=== PATIENT | female | born 1990 | race Caucasian/White ===

== ENCOUNTER 2024-07-25 14:05 | Outpatient (OUT) | payer OTHER, SELFPAY ==
--- NOTE | 2024-07-25 14:16 | MM_ITS ---
Patient Name: ROSALBA HUTCHINSON MR#: [id number] : 1990 Exam Date: 07/25/2024 Ordering Doctor: DR Clint Sanchez . RADIOLOGY REPORT PROCEDURE: MM TOMOSYNTHESIS DIAGNOSTIC BI, 07/25/2024, 14:25 US BREAST LT LIMITED, 07/25/2024, 15:25 COMPARISON: US BREAST LEFT LIMITED, 04/04/2021. [facility] MAMM DIAGNOSTIC 3D SUNDAY CAD, 04/04/2021. MG MAMM SUNDAY DIAG W CAD, 09/15/2016. MG MAMM SUNDAY DIAG W CAD DIG, 03/06/2016. INDICATIONS: Bilateral Breast Pain, Right Breast Lump Calculator Name NCI Breast Cancer Risk Assessment Tool 5 Year Breast Cancer Risk Not Applicable. Lifetime Breast Cancer Risk Not Applicable. Personal Breast Cancer No Personal Ovarian Cancer No Treatments None Family Cancers Uncle-maternal with lymphoma cancer at age 24. LOCATION: [facility] BREAST COMPOSITION: The breasts are extremely dense, which lowers the sensitivity of mammography. FINDINGS: DIAGNOSTIC CATEGORY 2--BENIGN FINDING: RIGHT BREAST: No significant suspicious finding. No significant change has occurred. LEFT BREAST: No significant suspicious finding. No significant change has occurred. Ultrasound evaluation of the lower-outer quadrant demonstrate stable appearance of a small benign appearing lymph node. No suspicious findings. RECOMMENDATIONS: CLINICAL EVALUATION. PLEASE NOTE: A NORMAL MAMMOGRAM DOES NOT EXCLUDE THE POSSIBILITY OF BREAST CANCER. A CLINICALLY SUSPICIOUS PALPABLE LUMP SHOULD BE BIOPSIED. Dictated by: Barry Pineda M.D. on 07/25/2024 at 15:43 Approved by: Barry Pineda M.D. on 07/25/2024 at 15:49
== END 2024-07-25 14:06 | disposition home or self-care (01) ==
LOC: MAMMO 14:10
PROVIDERS: PCP Family Medicine; Visit Provider Obstetrics & Gynecology
DX: N64.4 Mastodynia (principal); N63.10 Unspecified lump in the right breast, unspecified quadrant; N64.89 Other specified disorders of breast; Z80.7 Family history of other malignant neoplasms of lymphoid, hematopoietic and related tissues; N63.23 Unspecified lump in the left breast, lower outer quadrant
CPT/HCPCS: 76642; 77066; G0279

== ENCOUNTER 2024-07-27 20:44 | Outpatient (REF) | payer OTHER, SELFPAY ==
--- OUTSIDE RECORDS SUMMARY | 2024-07-27 20:56 | XMS_ITS | CCD ---
Author Organization [facility] Care Team Providers Care Junior Technical Writer Name Role Phone REQUEST, DR NONE LISTED Primary Care Unavaila ble CAMILLE, DR REGALADO Admitting Unavailable CAMILLE, DR REGALADO Attending Unavailable CAMILLE, DR REGALADO Consulting Unavailable ZIEBER, DR BARRY Raza Consulting Unavailable REQUEST, DR MORILLO LISTED Primary Care Unavaila ble CAMILLE, DR REGALADO Admitting Unavailable CAMILLE, DR REGALADO Attending Unavailable CAMILLE, DR REGALADO Consulting Unavailable CAMILLE, DR REGALADO Admitting Unavailable CAMILLE, DR REGALADO Attending Unavailable CAMILLE, DR REGALADO Primary Care Unavailable CAMILLE, DR REGALADO Admitting Unavailable CAMILLE, DR REGALADO Primary Care Unavailable CAMILLE, DR REGALADO Attending Unavailable CAMILLE, DR REGALADO Consulting Unavailable DEISYKOABDIAZIZ OWENS Consulting Unavailable REQUEST, DR MORILLO LISTED Primary Care Unavaila ble CAMILLE, DR REGALADO Admitting Unavailable CAMILLE, DR REGALADO Attending Unavailable CAMILLE, DR REGALADO Admitting Unavailable WEST, DR WALTER Nieto Consulting Unavailable REQUEST, DR MORILLO LISTED Primary Care Unavaila ble CAMILLE, DR REGALADO Attending Unavailable CAMILLE, DR REGALADO Consulting Unavailable HEMMER, DR ARIANA Sharpe Consulting Unavailable HEMMER, DR ARIANA Sharpe Admitting Unavailable REQUEST, DR MORILOL LISTED Primary Care Unavaila ble HEMMER, DR ARIANA Sharpe Attending Unavailable Bonner, Natasha Unavailable ASHLEY LANE Attending Unavailable Allergies Allergy Classification Reported Allergen(s) Allergy Type Date of Onset Reaction(s) Facility (1 source) patient allergy list reviewed by nurse or physicia Propensity to adverse reactions 7 Comment:Done [facility] Other (1 source) Allergies Reconciled Propensity to adverse reactions Unknown [facility] Other Medications Current Medications Medication Drug Class(es) Dates Sig (Normalized) Sig (Original) citalopram 40 mg oral tablet (1 source) Serotonin Reuptake Inhibitor take 1 tablet by mouth every twenty-four hours CeleXA 40 MG 1 tablet once a day Active escitalopram 10 mg oral tablet (1 source) Serotonin Reuptake Inhibitor take 1 tablet by mouth every twenty-four hours Lexapro 10 MG 1 tablet Orally Once a day for 30 days Active Levonorgestrel (1 source) Progestin, Progestin-containing Intrauterine Device Start: 03-06-2019 Mirena (52 MG) 20MCG/24HR Mirena (52 MG)( 20MCG/24HR Intrauterine constant infusion ) Active -Hx Entry Intrauterine constant infusion for 0 [facility] 76379-256-91 LOT# [id number] EXP: 04/2021 *Pick strength-form from [id number] outdoors for eRX* Feb, Active phentermine hydrochloride 37.5 mg oral tablet (1 source) Sympathomimetic Amine Anorectic Start: 09-23-2023 take 1 tablet by mouth once daily before breakfast Adipex-P 37.5 MG 1 tablet before breakfast Orally Once a day for 30 days Sep, Active Problems Active Problems Problem Classification Problem Date Documented Da te Episodic/Chronic Abdominal pain (6 sources) Pelvic and perineal pain; Translations: [Pelvic and perineal pain] Onset: 03-05-2021 Episodic Anxiety disorders (3 sources) Anxiety state; Translations: [Anxiety state, unspecified] Onset: 06-09-2016 Chronic Asthma (1 source) Uncomplicated asthma; Translations: [Unspecified asthma, uncomplicated] Chronic Attention-deficit, conduct, and disruptive behavior disorders (1 source) Attention deficit hyperactivity disorder, predominantly inattentive type; Translations: [Attention deficit disorder of childhood without mention of hyperactivity] Onset: 02-14-2019 Chronic Contraceptive and procreative management (1 source) Intrauterine contraceptive device in situ; Translations: [Presence of (intrauterine) contraceptive device] Episodic Disorders usually diagnosed in infancy, childhood, or adolescence (1 source) Behavioral and emotional disorder with onset in childhood; Translations: [Other specified behavioral and emotional disorders with onset usually occurring in childhood and adolescence] Chronic Menstrual disorders (3 sources) Intermenstrual bleeding - irregular; Translations: [Excessive and frequent menstruation with irregular cycle] Resolved: 09-07-2018 Chronic Mood disorders (1 source) Depression; Translations: [Depression, unspecified] Chronic Nonmalignant breast conditions (6 sources) Unspecified lump in the left breast, lower outer quadrant; Translations: [Galactorrhea not associated with childbirth] Onset: 04-04-2021 Episodic Other and unspecified benign neoplasm (1 source) Benign neoplasm of pituitary gland; Translations: [Benign neoplasm of pituitary gland] Episodic Other endocrine disorders (1 source) Hyperprolactinemia; Translations: [Hyperprolactinemia] Chronic Other female genital disorders (1 source) Abnormal uterine bleeding; Translations: [Abnormal uterine and vaginal bleeding, unspecified] Chronic Other gastrointestinal disorders (1 source) Constipation; Translations: [Other constipation] Episodic Other nervous system disorders (1 source) Parageusia; Translations: [PARAGEUSIA] Onset: 06-01-2021 Episodic Other nutritional; endocrine; and metabolic disorders (2 sources) Overweight; Translations: [Overweight] Onset: 07-24-2016 Episodic Other nutritional; endocrine; and metabolic disorders (1 source) Overweight Episodic Other nutritional; endocrine; and metabolic disorders (1 source) Body mass index (BMI) 27.0-27.9, adult Episodic Other screening for suspected conditions (not mental disorders or infectious disease) (1 source) Urine test negative; Translations: [Encounter for test, result negative] Episodic Unclassified (3 sources) CONTACT W/AND (SUSP) EXPOS COVID-19; Translations: [CONTACT W/AND (SUSP) EXPOS COVID-19] Onset: 05-24-2021 Urinary tract infections (2 sources) Urinary tract infectious disease; Translations: [Urinary tract infection, site not specified] Episodic Viral infection (1 source) COVID-19; Translations: [COVID-19] Onset: 06-01-2021 Past or Other Problems Problem Classification Problem Date Documented Date Episodic/Chronic Acute bronchitis (1 source) Acute bronchitis; Translations: [Acute bronchitis] Onset: 11-25-2017 Episodic Headache; including migraine (1 source) Headache; Translations: [Headache, unspecified] Onset: 08-14-2014 Episodic Other aftercare (1 source) History and physical examination, follow-up; Translations: [Encounter for follow-up examination after completed treatment for conditions other than malignant neoplasm] Resolved: 09-07-2018 Episodic Other nutritional; endocrine; and metabolic disorders (4 sources) Body mass index 25-29 - overweight; Translations: [Body mass index 29.0-29.9, adult] Onset: 07-24-2016 Episodic Residual codes; unclassified (1 source) Insomnia; Translations: [Insomnia, unspecified] Onset: 10-26-2018 Episodic Residual codes; unclassified (1 source) Postprocedural state finding; Translations: [Other specified postprocedural states] Resolved: 09-07-2018 Episodic Unclassified (1 source) CONTACT W/AND (SUSP) EXPOS COVID-19; Translations: [CONTACT W/AND (SUSP) EXPOS COVID-19] Onset: 05-27-2021 Results Test Name Value Interpretation Reference Range Facility Complete Blood Count with Au to Diffon 10-08-2021 Basophils (Bld) [#/Vol] 0.06 10*3/uL Normal 0.00-0.20 [facility] Art History Instructor Comment on above: Performed By: #### C BCAD, LIPD, VITD, CMP, FE #### [facility] [address], [place] [id number] Basophils/100 WBC (Bld) 1.0 % Normal [facility] Art History Instructor Comment on above: Performed By: #### C BCAD, LIPD, VITD, CMP, FE #### [facility] [address], [place] [id number] Eosinophils (Bld) [#/Vol] 0.35 10*3/uL Normal 0.02-0.50 [facility] Specialist Comment on above: Performed By: #### C BCAD, LIPD, VITD, CMP, FE #### [facility] [address], [place] [id number] Eosinophils/100 WBC (Bld) 5.9 % Normal [facility] Art History Instructor Comment on above: Performed By: #### C BCAD, LIPD, VITD, CMP, FE #### [facility] [address], [place] [id number] Erythrocyte distribution width (RBC) [Ratio] 11.6 % Normal 11.0-15.0 [facility] Specialist Comment on above: Performed By: #### C BCAD, LIPD, VITD, CMP, FE #### [facility] [address], [place] [id number] Hematocrit (Bld) [Volume fraction] 41.5 % Normal 35.0-47.0 [facility] Specialist Comment on above: Performed By: #### C BCAD, LIPD, VITD, CMP, FE #### [facility] [address], [place] [id number] Hemoglobin (Bld) [Mass/Vol] 14.2 g/dL Normal 11.6-15.5 [facility] Specialist Comment on above: Performed By: #### C BCAD, LIPD, VITD, CMP, FE #### [facility] [address], [place] [id number] Lymphocytes (Bld) [#/Vol] 2.0 10*3/uL Normal 0.9-3.9 [facility] Specialist Comment on above: Performed By: #### C BCAD, LIPD, VITD, CMP, FE #### [facility] [address], [place] [id number] Lymphocytes/100 WBC (Bld) 34.3 % Normal [facility] Specialist Comment on above: Performed By: #### C BCAD, LIPD, VITD, CMP, FE #### [facility] [address], [place] [id number] MCH (RBC) [Entitic mass] 32.4 pg Normal 27.0-33.0 [facility] Specialist Comment on above: Performed By: #### C BCAD, LIPD, VITD, CMP, FE #### [facility] [address], [place] [id number] MCHC (RBC) [Mass/Vol] 34.2 g/dL Normal 32.0-36.0 [facility] Specialist Comment on above: Performed By: #### C BCAD, LIPD, VITD, CMP, FE #### [facility] [address], [place] [id number] MCV (RBC) [Entitic vol] 95 fL Normal 80-100 [facility] Specialist Comment on above: Performed By: #### C BCAD, LIPD, VITD, CMP, FE #### [facility] [address], [place] [id number] Monocytes (Bld) [#/Vol] 0.4 10*3/uL Normal 0.2-0.9 [facility] Specialist Comment on above: Performed By: #### C BCAD, LIPD, VITD, CMP, FE #### [facility] [address], [place] [id number] Monocytes/100 WBC (Bld) 7.1 % Normal [facility] Specialist Comment on above: Performed By: #### C BCAD, LIPD, VITD, CMP, FE #### [facility] [address], [place] [id number] Neutrophils (Bld) [#/Vol] 3.0 10*3/uL Normal 1.5-7.8 [facility] Specialist Comment on above: Performed By: #### C BCAD, LIPD, VITD, CMP, FE #### [facility] [address], [place] [id number] Neutrophils/100 WBC (Bld) 51.4 % Normal [facility] Specialist Comment on above: Performed By: #### C BCAD, LIPD, VITD, CMP, FE #### [facility] [address], [place] [id number] Platelet mean volume (Bld) [Entitic vol] 10.20 fL Normal 7.50-12.50 [facility] Specialist Comment on above: Performed By: #### C BCAD, LIPD, VITD, CMP, FE #### [facility] [address], [place] [id number] Platelets (Bld) [#/Vol] 272 10*3/uL Normal 140-400 [facility] Specialist Comment on above: Performed By: #### C BCAD, LIPD, VITD, CMP, FE #### [facility] [address], [place] [id number] RBC (Bld) [#/Vol] 4.38 10*6/uL Normal 3.90-5.20 [facility] Specialist Comment on above: Performed By: #### C BCAD, LIPD, VITD, CMP, FE #### [facility] [address], [place] [id number] RDW-SD 40.5 fL Normal 37.0-50.0 [facility] Specialist Comment on above: Performed By: #### C BCAD, LIPD, VITD, CMP, FE #### [facility] [address], [place] [id number] WBC (Bld) [#/Vol] 5.9 10*3/uL Normal 3.8-11.0 [facility] [employer] Instructor Comment on above: Performed By: #### C BCAD, LIPD, VITD, CMP, FE #### [facility] [address], [place] [id number] Comprehensive Metabolic Pane helder 10-08-2021 Albumin [Mass/Vol] 5.0 g/dL Normal 3.6-5.1 [facility] [place] [facility] [employer] In[facility] Comment on above: Performed By: #### C BCAD, LIPD, VITD, CMP, FE #### [facility] [address], [place] [id number] Albumin/Globulin [Mass ratio] 2.4 {ratio} Normal 1.0-2.5 [facility] Art History Instructor Comment on above: Performed By: #### C BCAD, LIPD, VITD, CMP, FE #### [facility] [address] [facility] [place] [id number] ALP [Catalytic activity/Vol] 61 U/L Normal 35-119 [facility] Art History Instructor Comment on above: Performed By: #### C BCAD, LIPD, VITD, CMP, FE #### [facility] [address], [place] [id number] ALT [Catalytic activity/Vol] 9 U/L Normal 6-33 [facility] Specialist Comment on above: Result Comment: 07/16 Female reference range changed. Performed By: #### C BCAD, LIPD, VITD, CMP, FE #### [facility] [address] [facility] [place] [id number] Anion gap [Moles/Vol] 16 mmol/L Normal 12-20 [facility] Art History Instructor Comment on above: Result Comment: Effe ctive 08/21/2019 reference range changed. Performed By: #### C BCAD, LIPD, VITD, CMP, FE #### [facility] [address] [facility] [place] [id number] AST [Catalytic activity/Vol] 21 U/L Normal 9-34 [facility] Specialist Comment on above: Performed By: #### C BCAD, LIPD, VITD, CMP, FE #### [facility] [address], [place] [id number] BUN/CREA 12 Ratio Normal 6-22 [facility] Specialist Comment on above: Performed By: #### C BCAD, LIPD, VITD, CMP, FE #### [facility] [address], [place] [id number] Calcium [Mass/Vol] 10.2 mg/dL Normal 8.6-10.2 [facility] Comment on above: Performed By: #### C BCAD, LIPD, VITD, CMP, FE #### [facility] [address], [place] [id number] Chloride [Moles/Vol] 104 mmol/L Normal 98-[address] [facility] Comment on above: Performed By: #### C BCAD, LIPD, VITD, CMP, FE #### [facility] [address], [place] [id number] CO2 [Moles/Vol] 26 mmol/L Normal 20-[address] [facility] Comment on above: Performed By: #### C BCAD, LIPD, VITD, CMP, FE #### [facility] [address], [place] [id number] Creatinine [Mass/Vol] 0.6 mg/dL Normal 0.6-1.[address] [facility] Comment on above: Performed By: #### C BCAD, LIPD, VITD, CMP, FE #### [facility] [address], [place] [id number] eGFRAA 146 mL/min/1.73m2 Normal >60 [facility] Comment on above: Performed By: #### C BCAD, LIPD, VITD, CMP, FE #### [facility] [address], [place] [id number] eGFRNAA 121 mL/min/1.73m2 Normal >60 [facility] Comment on above: Performed By: #### C BCAD, LIPD, VITD, CMP, FE #### [facility] [address], [place] [id number] Globulin (S) [Mass/Vol] 2.1 g/dL Normal 1.9-3.7 [facility] Art History Instructor Comment on above: Performed By: #### C BCAD, LIPD, VITD, CMP, FE #### [facility] [address], [place] [id number] Glucose [Mass/Vol] 88 mg/dL Normal 65-99 [facility] [place] Art History Instructor Comment on above: Result Comment: For FASTING Glucose --- ADA reference ranges: Normal 65-99 mg/dl Prediabetes 100-125 Diabetes >/= 126 Performed By: #### C BCAD, LIPD, VITD, CMP, FE #### [facility] [address], [place] [id number] Potassium [Moles/Vol] 4.5 mmol/L Normal 3.5-5.5 [facility] Art History Instructor Comment on above: Performed By: #### C BCAD, LIPD, VITD, CMP, FE #### [facility] [address], [place] [id number] Protein [Mass/Vol] 7.1 g/dL Normal 6.1-8.1 [facility] Art History Instructor Comment on above: Performed By: #### C BCAD, LIPD, VITD, CMP, FE #### [facility] [address], [place] [id number] Sodium [Moles/Vol] 142 mmol/L Normal 135-146 [facility] Art History Instructor Comment on above: Performed By: #### C BCAD, LIPD, VITD, CMP, FE #### [facility] [address], [place] [id number] TBIL <0.3 Normal [facility] Art History Instructor Comment on above: Performed By: #### C BCAD, LIPD, VITD, CMP, FE #### [facility] [address], [place] [id number] Urea nitrogen [Mass/Vol] 7 mg/dL Normal 7-25 [facility] Art History Instructor Comment on above: Performed By: #### C BCAD, LIPD, VITD, CMP, FE #### [facility] [address], [place] [id number] Ironon 10-08-2021 FE 62 ug/dL Normal 40-190 [facility] Art History Instructor Comment on above: Result Comment: Refe chico range change 07/02/2017. Prior reference range F 37-145 ug/dL, M 59-158 ug/dL. Performed By: #### C BCAD, LIPD, VITD, CMP, FE #### [facility] [address], [place] [id number] Lipid Panelon 10-08-2021 Cholesterol [Mass/Vol] 175 mg/dL Normal 125-200 [facility] Art History Instructor Comment on above: Result Comment: Low risk < 200mg/dL Borderline risk 201-239 mg/dl High risk > or equal to 240 Performed By: #### C BCAD, LIPD, VITD, CMP, FE #### [facility] [address], [place] [id number] Cholesterol in HDL [Mass/Vol] 59 mg/dL Normal >40 [facility] Art History Instructor Comment on above: Result Comment: High Cardiovascular Risk HDL <40 mg/dL Low Cardiovascular Risk HDL > or equal to 60 mg/dl Performed By: #### C BCAD, LIPD, VITD, CMP, FE #### [facility] [address], [place] [id number] Cholesterol in LDL [Mass/Vol] 107 mg/dL Normal [facility] Art History Instructor Comment on above: Result Comment: LDL ATP III CLASSIFICATION LDL less than 100 mg/dl Optimal LDL 100-129 mg/dl Near or above optimal LDL 130-159 Borderline high LDL 160-189 High LDL greater than 189 mg/dl Very High Performed By: #### C BCAD, LIPD, VITD, CMP, FE #### [facility] [address], [place] [id number] Cholesterol in VLDL [Mass/Vol] 9 mg/dL Normal [facility] Art History Instructor Comment on above: Performed By: #### C BCAD, LIPD, VITD, CMP, FE #### [facility] [address], [place] [id number] Cholesterol.total/ Cholesterol in HDL [Mass ratio] 3 {ratio} Normal [facility] Art History Instructor Comment on above: Performed By: #### C BCAD, LIPD, VITD, CMP, FE #### [facility] [address], [place] [id number] Triglyceride [Mass/Vol] 46 mg/dL Normal 30-150 [facility] Art History Instructor Comment on above: Result Comment: TRIG ATPIII CLASSIFICATIONS TRIG less than 150 mg/dl Normal TRIG 150-199 mg/dl Borderline High TRIG 200-500 mg/dl High TRIG greather than 500 mg/dl Very High Performed By: #### C BCAD, LIPD, VITD, CMP, FE #### [facility] [address], [place] [id number] Q - PROLACTINon 10-08-2021 PROLACTIN 14.3 ng/mL Normal [facility] Art History Instructor Comment on above: Order Comment: [facility] performed at: [facility], [address] [place] [address], [address] [place] [address], [id number], Meat Blender: Walter Johnson MD [facility] Date/Time: [facility] Results Received Date/Time: [facility] Reported Date/Time: Result Comment: Refe rence Range Females Non- 3.0-30.0 10.0-209.0 Postmenopausal 2.0-20.0 Performed By: #### 7 [id number] #### [facility] [address] [place] [address] Vitamin B12/Folateon 022 Cobalamin (Vitamin B12) [Mass/Vol] 315 pg/mL Normal 211-946 [facility] Art History Instructor Comment on above: Performed By: #### B 12/Fol #### [facility] [address], [place] [id number] FOL 7.5 ng/mL Normal >4.7 [facility] Art History Instructor Comment on above: Result Comment: Refe rence range change 07/02/2017. Prior reference range F 4.8-37.3 ng/mL, M 4.5-32.2 ng/mL. Performed By: #### B 12/Fol #### [facility] [address], [place] [id number] Vitamin D 25-OHon 10-08-2021 VIT D 25 OH 29 ng/ml Low >29 [place] [facility] Instructor Comment on above: Result Comment: Cheryl min D Status Deficiency <20 ng/mL Insufficiency 20-29 ng/mL Optimal 30-100 ng/mL Possible Toxicity >=150 ng/mL Performed By: #### C BCAD, LIPD, VITD, CMP, FE #### [facility] [address] [facility] [place] [id number] Covid-19 PCR (CVDTBH)on 05-16 SARS-CoV-2 (COVID-19) RNA ELODIA+probe Ql (Unsp spec) Detected Critically abnormal NOT DETECTED [facility] Comment on above: Result Comment: This test is not yet approved or cleared by the [place] FDA. When there are no FDA-approved or cleared tests available, and other criteria are met, FDA can make tests available under an emergency access mechanism called an Emergency Use Authorization (EUA). The EUA for this test is supported by the Executive Vp of Health and Human Service's (HHS's) declaration that circumstances exist to justify the emergency use of in vitro diagnostics for the detection and/or diagnosis of the virus that causes COVID-19. This EUA will remain in effect (meaning this test can be used) for the duration of the COVID-19 declaration justifying emergency of IVDs, unless it is terminated or revoked by FDA (after which the test may no longer be used). Performed By: #### C VDTBH #### [facility] [address] [place] [address] [address] Major Williamson Covid-19 PCR (CVDTBH)on SARS-CoV-2 (COVID-19) RNA ELODIA+probe Ql (Unsp spec) Not detected Normal NOT DETECTED [facility] Comment on above: Result Comment: This test is not yet approved or cleared by the [place] FDA. When there are no FDA-approved or cleared tests available, and other criteria are met, FDA can make tests available under an emergency access mechanism called an Emergency Use Authorization (EUA). The EUA for this test is supported by the [place] of Health and Human Service's (HHS's) declaration that circumstances exist to justify the emergency use of in vitro diagnostics for the detection and/or diagnosis of the virus that causes COVID-19. This EUA will remain in effect (meaning this test can be used) for the duration of the COVID-19 declaration justifying emergency of IVDs, unless it is terminated or revoked by FDA (after which the test may no longer be used). When diagnostic testing is negative, the possibility of a false negative should be considered in the context of a patient's recent exposures and the presence of clinical signs and symptoms consistent with SARS-CoV-2. Performed By: #### C VDTB #### [facility] [address] [place], [place] [address] Dr. Major Williamson MG MAMM DIAGNOSTIC 3D SUNDAY CA Don 04-04-2021 MG MAMM DIAGNOSTIC 3D SUNDAY CAD Patient: ROSALBA HUTCHINSON Exam Date: 04/04/2021 : 1990 Gender:F Ordering : DR SABINE OBRIEN . Admission #: [id number] Family : Order #: [id number] CLICK HERE TO VIEW EXAM RADIOLOGY REPORT PROCEDURE: MAMMOGRAM DIAGNOSTIC 3D BILATERAL CAD, 04/04/2021, 13:58 ULTRASOUND BREAST LEFT LIMITED, 04/04/2021, 14:29 COMPARISON: MG MAMM SUNDAY DIAG W CAD, 09/15/2016. INDICATIONS: Lump in lower outer quadrant of left breast Calculator Name NCI Breast Cancer Risk Assessment Tool 5 Year Breast Cancer Risk Not Applicable. Lifetime Breast Cancer Risk Not Applicable. Personal Breast Cancer No Personal Ovarian Cancer No Treatments None Family Cancers Uncle-maternal with lymphoma cancer at age 24. LOCATION: [facility] BREAST COMPOSITION: Extremely dense, which lowers the sensitivity of mammography. FINDINGS: DIAGNOSTIC CATEGORY 3--PROBABLY BENIGN FINDING. THE FOLLOWING FINDING(S) HAS A HIGH PROBABILITY OF A BENIGN ETIOLOGY: RIGHT BREAST: No significant suspicious finding. Stable biopsy marker clip within the lower-outer quadrant. No significant change has occurred. LEFT BREAST: A skin surface marker is present over the upper outer quadrant, approximately 3:00 a.m., mid breast. No appreciable abnormality within the dense underlying tissue. Ultrasound evaluation demonstrates what is suspected to be a 1.2 cm lymph node at the 4 o'clock position deep to the palpable area. As a precautionary measure follow-up ultrasound evaluation in 6 months is recommended to document stability. RECOMMENDATIONS: SHORT TERM FOLLOW-UP ULTRASOUND LEFT BREAST IN 6 MONTHS. PLEASE NOTE: A NORMAL MAMMOGRAM DOES NOT EXCLUDE THE POSSIBILITY OF BREAST CANCER. A CLINICALLY SUSPICIOUS PALPABLE LUMP SHOULD BE BIOPSIED. Dictated by: Barry Pineda M.D. on 04/04/2021 at 14:44 Approved by: Barry Pineda M.D. on 04/04/2021 at 14:50 Normal [facility] US BREAST LEFT LIMITEDon US BREAST LEFT LIMITED Patient: ROSALBA HUTCHINSON Exam Date: 04/04/2021 : 1990 Gender:F Ordering : DR SABINE OBRIEN . Admission #: [id number] Family : Order #: [id number] CLICK HERE TO VIEW EXAM RADIOLOGY REPORT PROCEDURE: MAMMOGRAM DIAGNOSTIC 3D BILATERAL CAD, 04/04/2021, 13:58 ULTRASOUND BREAST LEFT LIMITED, 04/04/2021, 14:29 COMPARISON: MG MAMM SUNDAY DIAG W CAD, 09/15/2016. INDICATIONS: Lump in lower outer quadrant of left breast Calculator Name NCI Breast Cancer Risk Assessment Tool 5 Year Breast Cancer Risk Not Applicable. Lifetime Breast Cancer Risk Not Applicable. Personal Breast Cancer No Personal Ovarian Cancer No Treatments None Family Cancers Uncle-maternal with lymphoma cancer at age 24. LOCATION: [facility] BREAST COMPOSITION: Extremely dense, which lowers the sensitivity of mammography. FINDINGS: DIAGNOSTIC CATEGORY 3--PROBABLY BENIGN FINDING. THE FOLLOWING FINDING(S) HAS A HIGH PROBABILITY OF A BENIGN ETIOLOGY: RIGHT BREAST: No significant suspicious finding. Stable biopsy marker clip within the lower-outer quadrant. No significant change has occurred. LEFT BREAST: A skin surface marker is present over the upper outer quadrant, approximately 3:00 a.m., mid breast. No appreciable abnormality within the dense underlying tissue. Ultrasound evaluation demonstrates what is suspected to be a 1.2 cm lymph node at the 4 o'clock position deep to the palpable area. As a precautionary measure follow-up ultrasound evaluation in 6 months is recommended to document stability. RECOMMENDATIONS: SHORT TERM FOLLOW-UP ULTRASOUND LEFT BREAST IN 6 MONTHS. PLEASE NOTE: A NORMAL MAMMOGRAM DOES NOT EXCLUDE THE POSSIBILITY OF BREAST CANCER. A CLINICALLY SUSPICIOUS PALPABLE LUMP SHOULD BE BIOPSIED. Dictated by: Barry Pineda M.D. on 04/04/2021 at 14:44 Approved by: Barry Pineda M.D. on 04/04/2021 at 14:50 Normal [facility] US PELVISon 03-05-2021 US PELVIS EXAMINATION: US PELV IS HISTORY: Pelvic and perineal pain COMPARISON: 12/27/2019 FINDINGS: Transabdominal images The uterus is normal in size, contour and myometrial echotexture measuring 8.9 x 5.7 x 4.2 cm. Anteflexed. No focal myometrial mass. The endometrium measures 7 mm, normal. Linear hyperechogenicity within the endometrial cavity with acoustic shadowing consistent with a normally placed IUD, endometrium posterior to the IUD is not observed. The right ovary is normal in size, contour and echotexture measuring 4.1 x 2.1 x 1.7 cm. Normal resistive index of 0.5. Left ovary measures 4.3 x 3.1 x 2.4 cm. Area of anechoic echogenicity measuring 2.9 x 2.1 x 4.9 cm, a simple cyst is favored IMPRESSION: 2.9 cm left ovarian simple cyst Electronically authenticated by: WALTER PATRICK Date: 2021-03-05 13:10 Normal [facility] PROLACTINon 08-26-2018 Protein mass conc 36.1 ng/ml Normal 2.1-47.6 [facility] Comment on above: Result Comment: ARLENE ENOPAUSAL FEMALE 2.1 - 47.6POSTMENOPAUSAL FEMALE 0.0 - 41.4 Performed By: #### 4 550 ####[facility] Unless Otherwise [id number] [address] [address]Plamk: [phone]/ VTCJ #4724/CLIA # [id number] Basic Metabolic Profileon Anion gap 3 molar conc 10.0 mmol/L Normal 10.0-15.0 [facility] Comment on above: Performed By: #### 1 015 ####[facility] Unless Otherwise [id number] [address] [address]Kkghw: [phone]/ QEEE #7824/CLIA # [id number] BUN/Cre Ratio 11.7 Ratio Normal 7.0-27.0 [facility] Comment on above: Performed By: #### 1 015 ####[facility] Unless Otherwise [id number] [address] [address]Wulbx: [phone]/ IKUO #4724/CLIA # [id number] Calcium mass conc 9.6 mg/dL Normal 8.4-10.2 [facility] Comment on above: Performed By: #### 1 015 ####[facility] Unless Otherwise [id number] [address] [address]Xsirk: [phone]/ IAKS #4724/CLIA # [id number] Chloride molar conc 101.0 mmol/L Normal 98.0-107.0 [facility] Comment on above: Performed By: #### 1 015 ####[facility] Unless Otherwise [id number] [address] [address]Ecoik: [phone]/ NKNL #4724/CLIA # [id number] CO2 molar conc 29.0 mmol/L Normal 22.0-30.0 [facility] Comment on above: Performed By: #### 1 015 ####[facility] Unless Otherwise [id number] [address] [address]Nshnr: [phone]/ GVML #4724/CLIA # [id number] Creatinine mass conc 0.6 mg/dL Normal 0.5-1.0 [facility] Comment on above: Performed By: #### 1 015 ####[facility] Unless Otherwise Aypzx2488 [address] [address]Lkpvd: [phone]/ VBZY #4724/CLIA # [id number] GFR/1.73 sq M predicted among blacks MDRD vol rate/area (S/P/Bld) 155.4 ml/m1.73 Normal [facility] Comment on above: Performed By: #### 1 015 ####[facility] Unless Otherwise [id number] [address] [address]Ygmpd: [phone]/ NEIP #4724/CLIA # [id number] GFR/1.73 sq M predicted among non-blacks MDRD vol rate/area (S/P/Bld) 148.2 ml/m1.73 Normal [facility] Comment on above: Performed By: #### 1 015 ####[facility] Unless Otherwise [id number] [address] [address]Cijio: [phone]/ ZLJF #4724/CLIA # [id number] GFR/1.73 sq M predicted among non-blacks MDRD vol rate/area (S/P/Bld) 128.4 ml/m1.73 Normal [facility] Comment on above: Performed By: #### 1 015 ####[facility] Unless Otherwise [id number] [address] [address]Ghphl: [phone]/ FLWH #4724/CLIA # [id number] Glucose mass conc 81.0 mg/dL Normal 74.0-106.0 [facility] Comment on above: Performed By: #### 1 015 ####[facility] Unless Otherwise [id number] [address] [address]Rnlgy: [phone]/ XQLY #4724/CLIA # [id number] Potassium molar conc 4.3 mmol/L Normal 3.5-5.1 [facility] Comment on above: Performed By: #### 1 015 ####[facility] Unless Otherwise [id number] [address] [address]Efzyq: [phone]/ EFFD #4724/CLIA # [id number] Sodium molar conc 140.0 mmol/L Normal 137.0-145.0 [facility] Comment on above: Performed By: #### 1 015 ####[facility] Unless Otherwise [id number] [address] [address]Cbwnf: [phone]/ SNLO #4724/CLIA # [id number] Urea nitrogen mass conc 7.0 mg/dL Normal 7.0-17.0 [facility] Comment on above: Performed By: #### 1 015 ####[facility] Unless Otherwise Ujnnu3505 [address] [address]Doesg: [phone]/ KLIS #4724/CLIA # [id number] Vital Signs Date Time Vital Sign Value Performing Clinician Facility 09-23-2023 10:45-0500 Body height 160.02 cm Natasha Bonner Other [facility] Other 09-23-2023 10:45-0500 Body mass index (BMI) [Ratio] 27.6 kg/m2 Natasha Bonner Other [facility] Other 09-23-2023 10:45-0500 Body weight 70.67 kg Natasha Bonner Other [facility] Other 09-23-2023 10:45-0500 Diastolic blood pressure 83 mm[Hg] Natasha Bonner Other [facility] Other 09-23-2023 10:45-0500 Systolic blood pressure 120 mm[Hg] Natasha Bonner Other [facility] Other 08-24-2018 18:32-0500 Body weight Measured 66.1 Kg [facility] Comment on above: Performed By: #### 1015 ####[facility] Unless Otherwise [id number] [address] [address]Hcaxb: [phone]/ YREC #4724/CLIA # [id number] Encounters Encounter Date Encounter Type Care Provider Facility Start: 11-02-2023 End: 11-02-[address] Not Available Start: 09-23-2023 End: 09-23-2023 ambulatory Natasha Bonner Other [facility] Other Start: 09-23-2023 Office outpatient vi sit 15 minutes Natasha Bonner [facility] Start: 09-17-2021 Gynecological examin ation normal Natasha Bonner Other [facility] Other Start: 09-17-2021 Pre-procedure evalua tion check Natasha Bonner Other [facility] Other Start: 05-27-2021 End: 05-27-[address] ARIANA PINO Facility:[facility] Start: 05-24-2021 Encounter for preprocedural laboratory examination DR SABINE OBRIEN [facility] Start: 05-23-[address] SABINE OBRIEN Facility :[facility] Start: 05-21-2021 Encounter for other preprocedural examination DR SABINE OBRIEN [facility] Start: 05-20-2021 End: 05-21-2021 ambulatory NONE LISTED REQUEST Facility:[facility] Start: 05-20-2021 End: 05-21-2021 Encounter for preprocedural laboratory examination NONE LISTED REQUEST Facility:[facility] Start: 05-15-2021 End: 05-16-[address] SABINE OBRIEN Facility:[facility] Start: 05-15-2021 End: 05-16-2021 Encounter for other preprocedural examination DR SABINE OBRIEN Facility:[facility] Start: 04-04-2021 End: 04-05-2021 ambulatory NONE LISTED REQUEST Facility:[facility] Start: 03-05-2021 End: 03-06-[address] SABINE OBRIEN Facility:[facility] Start: 12-20-2019 Adult health examination Sandra Bonner Other [facility] Other Procedures Date Procedure Procedure Detail Performing Clinician End: 05-03-2019 Contraception care education Natasha Bonner Other End: 09-07-2018 Family planning education Natasha Bonner Other Payers Date Payer Category Payer Unknown [id number] 2.16.84 [id number] 1990 Unknown [id number] 2.16.84 [id number] 1990 Unknown [id number] 2.16.84 [id number] 1990 Unknown [id number] 2.16.84 [id number] 1990 Unknown [id number] 2.16.84 [id number] 1990 Unknown [id number] 2.16.84 [id number] 1990 Unknown [id number] 2.16.84 [id number] 1990 Unknown [id number] 2.16.84 [id number] 1958 Private Health Insurance [id number] 1958 Self-pay [id number] Private Health Insurance [id number] Social History Date Type Detail Facility Unknown if ever smoked [facility] Other Sex Assigned At Sex Assigned At Bir th [facility] Other Evaluation note 09-23-2023 Note Date & Type Note Facility 09-23-2023 Evaluation note Encounter Date Diagnosis Assessment Notes Sep, Anxiety (ICD-10 - F41.9) Patient will wean down on citalopram and start Lexapro. Discussed lifestyle changes that may be helpful with anxiety. Discussed resources. Sep, Overweight (ICD-10 - E66.3) Patient has clearly made a good amira effort for several months on her own to lose weight with little success. Pt to start Adipex daily. Medication is a stimulant. May cause you to be jittery or constipated. Take in the morning, may also take stool softener daily as needed. Continue to eat a healthy well balanced diet and continue work-out regimine. Pt aware that this is not a cure for obesity but a tool used to help them during their weight loss plateau. Pt aware that they need to continue to work hard at weight loss or the weight will be regained. Side effects discussed and understood. Pt education printed and discussed. Pt notified of prescribing schedule with 30 day dispensing, no refills, for up to 12 weeks, with a 6 month break in-between treatments. Id SOB, CP, mood changes, tachycardia, HTN, headaches, blurred vision occur, go to ER and Follow-up with me immediatel Sep, Body mass index [BMI] 27.0-27.9, adult (ICD-10 - Z68.27) [facility] Other History general Narrative - Reported 03-24-2021 Note Date & Type Note Facility 03-24-2021 History general N arrative - Reported Type Medical History Problem Title : Anxi ety Disorder, Problem Comment : Mukul 03/24/2021, Problem Status : Active,, Medical History Problem Title : CHOR OID PLEXUS CYST, Problem Status : Inactive, Attribute Title : Patient Risk Factors,, Medical History Problem Title : comp liance with medical treatment, Problem Description : compliance with medical treatment, Problem Comment : Done, Problem Status : Active,, Medical History Problem Title : Depr ession, Problem Comment : Mukul 03/24/2021, Problem Status : Active,, Medical History Problem Title : EXPO SURE TO NON-STD INFECTION: The patient has not been exposed to AIDS, HIV, hepatitis, TB, influenza, MMR, DPT, polio or tetanus. There have been no recent rashes or viral illnesses, Problem Status : Inactive,, Medical History Problem Title : Essie roesophageal Reflux Disease, Problem Comment : [employer] 03/24/2021, Problem Status : Active,, Medical History Problem Title : MEDI ESTHER: Asthma, Problem Status : Inactive,, Medical History Problem Title : No h istory of receiving blood or blood product transfusion(s), Problem Status : Active,, Medical History Problem Title : no k nown problems, Problem Description : no known problems, Problem Comment : F, Problem Status : Active,, Medical History Problem Title : past medical history E&M, Problem Description : past medical history E&M, Problem Comment : Anxiety, Problem Status : Active,, Medical History Problem Title : past medical history reviewed, Problem Description : past medical history reviewed, Problem Comment : reviewed - no changes required, Problem Status : Active,, Medical History Problem Title : Prob lems Reconciled, Problem Status : Active,, Medical History Problem Title : psyc hiatric examination, comments, Problem Description : psychiatric examination, comments, Problem Comment : alert and cooperative; normal mood and affect; normal attention span and concentration. , Problem Status : Active,, Medical History Problem Title : She has not had a rash or viral illness since her last menstrual period, Problem Status : Active,, Medical History Problem Title : The patient has not been exposed to AIDS, HIV, hepatitis, TB, influenza, MMR, DPT, polio or tetanus. There have been no recent rashes or viral illnesses, Problem Status : Active,, Medical History Problem Title : The patient has not been exposed to non-STD infections, Problem Status : Active,, Medical History Problem Title : PETTY SFUSION HISTORY: No history of receiving blood or blood product transfusion(s), Problem Status : Inactive,, Medical History Problem Title : Unsp ecified Diagnosis, Problem Status : Inactive,, Medical History Problem Title : very low density lipoproteins, Problem Description : very low density lipoproteins, Problem Comment : 21.0, Problem Status : Active,, Surgical History Problem Title : Lapa roscopy, Problem Comment : Diagnostic, Problem Status : Active, Surgical History Problem Title : No p revious surgery, Problem Status : Inactive, Surgical History Problem Title : NON PATENT LEGAL ASSISTANT SURGERIES: No previous surgery, Problem Status : Inactive, Surgical History Problem Title : past surgical history reviewed, Problem Description : past surgical history reviewed, Problem Comment : reviewed - no changes required, Problem Status : Inactive, [facility] Other Summary Purpose Family History No Family History Records FoundNo Family History Records FoundNo Family History Records FoundNo Family History Records Found Advance Directives No Advanced Directives Records FoundNo Advanced Directives Records FoundNo Advanced Directives Records FoundNo Advanced Directives Records Found Additional Source Comments INFORMATION SOURCE (unrecogn ized section and content) DATE CREATED AUTHOR 08/29/2018 [facility] DATE CREATED AUTHOR AUTHOR'S ORGANIZ ATION 06/01/2021 [facility] DATE CREATED AUTHOR AUTHOR'S ORGANIZ ATION 10/09/2021 [facility] DATE CREATED AUTHOR AUTHOR'S ORGANIZ ATION 11/03/2023 [facility] EPIC REASON FOR VISIT (unrecogniz ed section and content) anxiety FOR RECORDS PERTAINING TO PATIENTS WHO ARE OR HAVE BEEN ENROLLED IN A CHEMICAL DEPENDENCY/SUBSTANCEABUSE PROGRAM, SOME INFORMATION MAY BE OMITTED. This clinical summary was aggregated from multiple sources. Caution should be exercised in using it in the provision of clinical care. This summary normalizes information from multiple sources, and as a consequence, information in this document may materially change the coding, format and clinical context of patient data. In addition, data may be omitted in some cases. CLINICAL DECISIONS SHOULD BE BASED ON THE PRIMARY CLINICAL RECORDS. [employer] provides no warranty or guarantee of the accuracy or completeness of information in this document.
== END 2024-07-27 20:45 | disposition home or self-care (01) ==
LOC: LAB 20:44
PROVIDERS: PCP Family Medicine; Visit Provider Obstetrics & Gynecology
DX: Z01.419 Encounter for gynecological examination (general) (routine) without abnormal findings (principal)
CPT/HCPCS: 87624; 88175

== ENCOUNTER 2024-08-07 13:51 | Outpatient (OUT) | payer OTHER, SELFPAY ==
--- NOTE | 2024-08-07 13:58 | US_ITS ---
The [address] [address] Patient Name: ROSALBA HUTCHINSON MRN: [id number] date: 1990 Sex: F Assigned Patient Location: US Current Patient Location: Accession/Order Number: [id number] Exam Date: 08/07/2024 14:28 Report Date: 08/10/2024 07:25 At the request of: SABINE OBRIEN Procedure: US pelvis w/ transvaginal EXAMINATION: US pelvis w/ transvaginal HISTORY: Pelvic Pain COMPARISON: Ultrasound pelvis 03/05/2021 TECHNIQUE: Transabdominal and/or transvaginal sonographic examination was performed as indicated by examination type. FINDINGS: UTERUS: Normal size and appearance. Uterus size: 8.6 x 4.1 x 4.8 cm ENDOMETRIUM: Normal homogeneous appearance. Endometrial thickness: 3 mm RIGHT OVARY: Normal size and appearance. Duplex Doppler demonstrates normal waveform and flow; resistive index 0.4. Ovary size: 1.6 x 2.3 x 1.9 cm LEFT OVARY: Contains a 1.1 cm irregular cystic structure, likely a collapsing follicle. Duplex Doppler demonstrates normal waveform and flow; resistive index 0.5. Ovary size: 3.0 x 1.8 x 2.3 cm CUL-DE-SAC: Unremarkable. No significant free fluid. BLADDER: Unremarkable. OTHER: None. US/US pelvis w/ transvaginal IMPRESSION: 1. Suspect collapsing follicle within left ovary. Otherwise unremarkable pelvis. Electronically authenticated by: GENEVA BA Date: 08/10/2024 07:25
== END 2024-08-07 13:52 | disposition home or self-care (01) ==
PROVIDERS: PCP Family Medicine; Visit Provider Obstetrics & Gynecology
DX: R10.2 Pelvic and perineal pain (principal); R14.0 Abdominal distension (gaseous)
CPT/HCPCS: 76830; 76856